=== PATIENT | female | born 1995 | race Caucasian/White ===

== ENCOUNTER 2017-05-22 09:39 | Day surgery (SDC) | payer BC ==
[~2017-05-22 09:39] MED LIST: ACETAMINOPHEN 1,000 MG/100 ML BTL IV ONE; CEFAZOLIN 2 Gram 2 GM/50 ML BAG IVPB ONE; FAMOTIDINE 20MG TABLET PO ONE; MECLIZINE 25 MG TABLET PO ONE; METOCLOPRAMIDE 10 MG TABLET PO ONE
[2017-05-22] MEDS ORDERED: PROPOFOL 10 MG/ML VIAL IV ONE (09:40)
[2017-05-22] MEDS ORDERED: METOCLOPRAMIDE HCL 10 MG/2 ML VIAL IVP ONE (09:40)
[2017-05-22] MEDS ORDERED: BUPIVACAINE 0.75% W/EPI MPF 30ML VIAL IVP ONE (09:40)
[2017-05-22] MEDS ORDERED: ONDANSETRON HCL IV 4 MG/2 ML VIAL IVP ONE (09:40)
[2017-05-22] MEDS ORDERED: LIDOCAINE 2% MDV (20MG/ML) 20ML VIAL IV ONE (09:40)
[2017-05-22] MEDS ORDERED: MIDAZOLAM HCL 2MG/2ML VIAL IV ONE (09:40)
[2017-05-22] MEDS ORDERED: FENTANYL PF 100MCG/2ML VIAL IV ONE (09:40)
[2017-05-22] MEDS ORDERED: SUFENTANIL CITRATE 50 MCG/ML AMPUL IV ONE (09:40)
[2017-05-22] MEDS ORDERED: DESFLURANE 240 ML BTL INH ONE (09:40)
[2017-05-22] MEDS ORDERED: ENOXAPARIN 40 MG/0.4 ML SYR SQ ONE (09:40)
[2017-05-22] MEDS ORDERED: BUPIVACAINE 0.25% MPF 30ML VIAL IVP ONE (09:40)
[2017-05-22] MEDS ORDERED: DEXAMETHASONE 4 MG/ML 1ML VIAL IVP ONE (09:40)
--- NOTE | 2017-05-22 15:45 | Operative Note ---
DATE OF SURGERY: 05/22/17 PREOPERATIVE DIAGNOSIS: RECURRENT LATERAL DISLOCATION OF THE RIGHT PATELLA. POSTOPERATIVE DIAGNOSES: 1. RECURRENT LATERAL DISLOCATION OF THE RIGHT PATELLA. 2. 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 PROCEDURE: 1. RIGHT KNEE TIBIAL TUBERCLE OSTEOTOMY. 2. RIGHT KNEE ARTHROSCOPY WITH INTRA-ARTICULAR DEBRIDEMENT. 3. RIGHT KNEE LATERAL RELEASE. STAFF SURGEON: BLANCO BOWIE M.D. ANESTHESIA: GENERAL. PREPARATION: CHLORAPREP. INDIVIDUAL CONSIDERATIONS: NONE. PROCEDURE: The patient was taken to the Operating Room and placed supine on the operating table. She had a successful induction of a general anesthetic. Her right lower extremity was prepped and draped in the usual fashion. The limb was elevated. The tourniquet was inflated to 300 mmHg. The patient had a superior lateral inflow cannula placed. The skin was infiltrated with 0.50% Marcaine with Epinephrine prior. A stab wound was made a blunt tipped trocar for the scope was placed in the joint and the joint was inflated with normal saline. An inferior medial and inferior lateral portal was made in a similar fashion. The arthroscope was introduced through the inferior lateral portal up in the pouch. She had quite a large impinging fat pad, which was debrided. She had a large chondral lesion with loose cartilage basically on the medial facet of the patella and as I dislocated it, it subluxed it laterally and would fit right in the lateral femoral condyle. The loose cartilage was debride. The notch otherwise looked good. The medial compartment structures were normal, notch was normal, and the lateral compartment structures were completely normal. The cruciates were normal. After irrigation, the portals were closed with bret. The patient had a midline approach through the patellar tendon and the tibial tubercle extending to the inferior pole of the patella. The skin was again infiltrated with 0.75% Marcaine with Epinephrine. Sharp dissection carried down through the skin and subcutaneous tissues and small veins were coagulated with a Bovie. An incision was made just lateral to the anterior crest of the tibia and then curving along the muscles of the anterior compartment and then extending proximally to the lateral aspect of the patellar tendon. A stab wound was made and this was carried into a lateral release to the superior pole of the patella with Metzenbaum scissors. I then elevated the muscles of the anterior compartment off the proximal aspect/lateral aspect of the tibia. I then did a broad-based osteotomy with an oscillating saw angling slightly anteriorly so when it moved medially it would move it slightly anteriorly. This was then completed with an osteotome. I moved it over with the periosteal hinge distally about 1 cm. I was able to secure with two screws. I started with guide pins for the 6.5 and then a 5.5 cannulated screws and then the screws with washers were then used to secure the osteotomy. When I did move it over, I then moved it distally just a millimeter or two to compensate the cosign of the angle of correction. The screws were tightened down and found to be of appropriate length and verified by fluoroscopy. The tourniquet was let down and hemostasis was obtained with a Bovie after thorough irrigation with Betadine and saline. The distal two-thirds of the periosteum was closed with a running # 1 Vicryl. The subcutaneous was closed with 2-0 plus quill and the skin was closed with bret. 20 mL of 0.25% plain Marcaine was then injected into the knee through a sterile 18-gauge needle and a sterile Bulkee compressive dressing was applied. The patient tolerated the procedures well. Needle and sponge counts were correct. Estimated blood loss was minimal and she was taken back to the Recovery Room in good condition. There were no complications. cc: Dr. Hi Jerry JOB NUMBER: [id number] MTDD
== END 2017-05-22 14:15 | disposition home or self-care (01) ==
LOC: SUR 09:39
PROVIDERS: ATTEND Orthopaedic Surgery
DX: S83.014A Lateral dislocation of right patella, initial encounter (principal); M23.41 Loose body in knee, right knee
CPT/HCPCS: 76000; 81025; J1650; J2405; J2765; J3490

== ENCOUNTER 2017-10-24 09:32 | Day surgery (SDC) | payer BC ==
[~2017-10-24 09:32] MED LIST changes: -FAMOTIDINE 20MG TABLET PO ONE; -MECLIZINE 25 MG TABLET PO ONE; -METOCLOPRAMIDE 10 MG TABLET PO ONE
[2017-10-24] MEDS ORDERED: *PACU ONLY* KETAMINE HCL 10 MG/ML (20ML) VIAL IV ONE (09:33)
[2017-10-24] MEDS ORDERED: BUPIVACAINE 0.5% W/EPI MPF 30 ML VIAL IVP ONE (09:33)
[2017-10-24] MEDS ORDERED: HYDROCODONE/APAP 7.5/325MG TABLET PO ONE (09:33)
[2017-10-24] MEDS ORDERED: KETOROLAC 30 MG/ML VIAL IVP ONE (09:33)
[2017-10-24] MEDS ORDERED: PROPOFOL 10 MG/ML VIAL IV ONE (09:33)
--- NOTE | 2017-10-25 07:16 | Operative Note ---
DATE: 10/24/2017. PREOPERATIVE DIAGNOSIS: HEALED TIBIAL TUBERCLE OSTEOTOMY ON THE RIGHT WITH PAINFUL HARDWARE. POSTOPERATIVE DIAGNOSIS: HEALED TIBIAL TUBERCLE OSTEOTOMY ON THE RIGHT WITH PAINFUL HARDWARE. PROCEDURE: Removal of deep, buried hardware, right tibial tubercle. STAFF SURGEON: Jorge Otoole M.D. ANESTHESIA: Local with intravenous sedation. INDIVIDUAL CONSIDERATIONS: None. PROCEDURE: The patient was taken to the operating room and was placed supine on the operating room table. She had intravenous sedation. Her right tibial tubercle was prepped and draped in the usual fashion. DESCRIPTION OF PROCEDURE: She had about a 4.0 cm incision directly over the screws. The skin had been infiltrated with 0.5% Marcaine with epinephrine prior. Sharp dissection was carried down through the skin and subcutaneous tissue. Sharp dissection was carried down to the screw heads. A alyson was then made over the scar over the screw heads, and a periosteal elevator was used to free them up. Both screws and washers were then removed. After irrigation, the subcutaneous layer was closed with running #2-0+ Vicryl. The skin was closed with running #3-0 Stratafix, and a sterile dressing along with Steri Strips were applied. The patient tolerated the procedure well. Needle and sponge counts were correct. Estimated blood loss was minimal. She was taken back to Recovery in good condition. There were no complications. ARUN
== END 2017-10-24 11:35 | disposition home or self-care (01) ==
LOC: SUR 09:32
PROVIDERS: ATTEND Orthopaedic Surgery
DX: T84.84XA Pain due to internal orthopedic prosthetic devices, implants and grafts, initial encounter (principal); F90.9 Attention-deficit hyperactivity disorder, unspecified type
CPT/HCPCS: 20680; 01392; 81025; J1885; J0690

== ENCOUNTER → 2018-05-22 | Day surgery (SDC) | payer BC ==
[~2018-05-22] MED LIST changes: -ACETAMINOPHEN 1,000 MG/100 ML BTL IV ONE; +BUPIVACAINE 0.5% W/EPI MPF 30 ML VIAL IVP ONE; -CEFAZOLIN 2 Gram 2 GM/50 ML BAG IVPB ONE; +LIDOCAINE 1% W/EPI 1:200,000 MPF 30ML SQ ONE
--- NOTE | 2018-05-23 11:00 | Operative Note ---
DATE OF SURGERY: 05/22/2018 PREOPERATIVE DIAGNOSIS: Hypertrophic scar right knee. POSTOPERATIVE DIAGNOSIS: Hypertrophic scar right knee. OPERATION: Approximately 12 cm scar revision, right knee. Staff Surgeon: Jorge Otoole MD Anesthesia: Local. Preparation: Chloraprep. Individual Considerations: None. PROCEDURE: The patient was taken to the operating room, placed supine on the operating room table. Her right knee was prepped and draped in the usual fashion. The anterior knee scar was infiltrated with a 50/50 mixture of 0.5% Marcaine with epinephrine and 1% lidocaine with epinephrine. An incision was made on both sides of the scar and then tapering to a knife edge on either side. Total length was about 12 cm. This hypertrophic skin and scar were all debrided out. After irrigation, I then went ahead and closed this with a running 2-0 quill subcuticular stitch and then added a few simple 3-0 nylons and then put tincture of benzoin and Steri-Strips along with a sterile dressing. She tolerated the procedure well and was taken back to recovery in good condition. There were no complications. ARUN
== END | disposition home or self-care (01) ==
LOC: SUR 12:57
PROVIDERS: ATTEND Orthopaedic Surgery
DX: L91.0 Hypertrophic scar (principal)